=== PATIENT | male | born 1990 ===

== ENCOUNTER 2016-11-02 21:25 | Emergency (ER) | payer OTHER ==
[2016-11-02 21:34] VITALS: BP 129/82; PULSE 81; RESP 20; TEMP 98.3; O2SAT 97
[2016-11-02] MEDS ORDERED: Tetanus/Diphtheria Toxoids 0.5 ml Syringe IM ONE ×2 (21:46→21:51)
[2016-11-02] MEDS ORDERED: Lidocaine 2% Inj (20ml) INFIL ONE (21:47)
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
[2016-11-02] MEDS ORDERED: Lidocaine 2% Inj (20ml) ONE (21:51)
--- NOTE | 2016-11-03 09:35 | RAD ---
PROCEDURE: HISTORY: injury COMPARISON: None TECHNIQUE: Five views FINDINGS: No fracture or dislocation. Each mandibular posterior mole are is diagonally to more horizontally oriented (left greater than right) IMPRESSION: No fracture or dislocation. Mandibular posterior molar orientations - oblique to horizontal
== END 2016-11-02 23:39 | disposition home or self-care (01) ==
LOC: C.ER 21:25
DX: S01.81XA Laceration without foreign body of other part of head, initial encounter (principal); Y04.0XXA Assault by unarmed brawl or fight, initial encounter

== ENCOUNTER 2016-11-09 18:08 | Emergency (ER) | payer OTHER | END 2016-11-09 19:12 | disposition left against medical advice (07) | LOC: C.ER 18:08 | DX: Z48.02 Encounter for removal of sutures (principal); Z02.9 Encounter for administrative examinations, unspecified ==

== ENCOUNTER 2016-11-10 20:55 | Emergency (ER) | payer OTHER ==
[2016-11-10 21:02] VITALS: BP 126/72; PULSE 54; RESP 17; TEMP 97.8; O2SAT 99
--- NOTE | 2016-11-10 21:18 | C.PDOC ---
History Of Present Illness 25 yo male came in for suture removal s/p laceration repair 11/02/16. No discharge, fever or redness. Time Seen by Provider: 11/10/16 21:08 Chief Complaint (Nursing): Wound Check History Per: Patient History/Exam Limitations: no limitations Onset/Duration Of Symptoms: Days Ago Past Medical History Vital Signs: Last Vital Signs Temp 97.8 F 11/10/16 20:59 Pulse 54 L 11/10/16 20:59 Resp 17 11/10/16 20:59 BP 126/72 11/10/16 20:59 Pulse Ox 99 11/10/16 21:18 - Medical History PMH: Asthma Family History: States: Unknown Family Hx - Social History Hx Alcohol Use: Yes Hx Substance Use: No - Immunization History Hx Tetanus Toxoid Vaccination: No Hx Influenza Vaccination: No Hx Pneumococcal Vaccination: No Review Of Systems Constitutional: Negative for: Fever ENT: Negative for: Mouth Pain, Mouth Swelling Skin: Negative for: Rash Neurological: Negative for: Weakness, Numbness Physical Exam - Physical Exam Appears: Well, Non-toxic, No Acute Distress Skin: Warm, Dry, Other ((+) left side of jaw suture ; no erythema , discharge or swelling) Head: Atraumatic, Normacephalic Eye(s): bilateral: Normal Inspection, EOMI Nose: Normal Oral Mucosa: Moist Neck: Normal, Normal ROM, Supple Chest: Symmetrical Respiratory: No Accessory Muscle Use Extremity: Normal ROM Neurological/Psych: Oriented x3, Normal Speech ED Course And Treatment O2 Sat by Pulse Oximetry: 99 Progress Note: Suture removed. Pt tolerated well. Discussed wound care. Disposition - Disposition Referrals: Non [facility] Provider, [Primary Care Provider] - Disposition: HOME/ ROUTINE Disposition Time: 21:18 Condition: STABLE Instructions: Stitches Removal (ED) Forms: [employer] (Danish) - Clinical Impression Clinical Impression: Visit for suture removal
== END 2016-11-10 21:30 | disposition home or self-care (01) ==
LOC: C.ER 20:55 → SUPCPDRO 20:55 → C.ER 21:30
DX: Z48.02 Encounter for removal of sutures (principal)

== ENCOUNTER 2018-08-14 02:21 | Emergency (ER) | payer OTHER ==
[2018-08-14] MEDS ORDERED: Albuterol-Ipratrop 3 mg / 0.5 (3 ml) UD ONE ×2 (02:30→03:06)
[2018-08-14 02:32] VITALS: TEMP 98.1
--- NOTE | 2018-08-14 02:39 | C.PDOC ---
History Of Present Illness patient presents with shortness of breath.received solumedrol and duonebs en route with improvement. No f/c/n/v. Speaking in 4-5 word sentences. Is in contact with cats(to which he's allergic to) as well as smoking hookah Time Seen by Provider: 08/14/18 02:39 Chief Complaint (Nursing): Shortness Of Breath History Per: Patient, EMS History/Exam Limitations: no limitations Onset/Duration Of Symptoms: Hrs Current Symptoms Are (Timing): Still Present Initiating Event: Upper Respiratory Illness, Possible Allergic Reaction Current Respiratory Medications: See Home Med List Severity: Moderate Pain Scale Rating Of: 5 Associated Symptoms: denies: Fever, Chills Reports Recently: Treated By A Physician Recent travel outside of the [place]: No Additional History Per: Family Past Medical History Reviewed: Historical Data, Nursing Documentation, Vital Signs Vital Signs: Last Vital Signs Temp 98.1 F 08/14/18 02:26 Pulse 82 08/14/18 02:26 Resp 23 08/14/18 02:26 BP 144/77 08/14/18 02:26 Pulse Ox 98 08/14/18 02:26 Primary Care Provider: Clinic,Med Surg - Medical History PMH: Asthma Family History: States: No Known Family Hx - Social History Hx Alcohol Use: Yes Hx Substance Use: Yes - Immunization History Hx Tetanus Toxoid Vaccination: No Hx Influenza Vaccination: No Hx Pneumococcal Vaccination: No Review Of Systems Constitutional: Negative for: Fever, Chills Cardiovascular: Negative for: Chest Pain Respiratory: Positive for: Shortness of Breath, Wheezing Gastrointestinal: Negative for: Abdominal Pain Genitourinary: Negative for: Dysuria Musculoskeletal: Negative for: Back Pain Skin: Negative for: Rash Neurological: Negative for: Weakness Psych: Negative for: Anxiety Physical Exam - Physical Exam Appears: In Acute Distress Skin: Warm, Dry Oral Mucosa: Moist Neck: Supple Chest: Symmetrical Cardiovascular: Rhythm Regular Respiratory: Decreased Breath Sounds, No Rales, No Rhonchi, Wheezing Gastrointestinal/Abdominal: Soft, No Tenderness, No Distention Back: No CVA Tenderness Extremity: Bilateral: Atraumatic Neurological/Psych: Oriented x3 Gait: Steady ED Course And Treatment ECG: Interpreted By Me O2 Sat by Pulse Oximetry: 98 Pulse Ox Interpretation: Normal - Radiology CXR: Interpreted by Me, Viewed By Me CXR Interpretation: No: Infiltrates, Fracture, Pnemothorax Reevaluation Time: 03:50 Reassessment Condition: Improved Critical Care Time - Critical Care Note Total Time (in mins): 30 Documented critical care: time excludes all time spent performing seperately billable procedures. Medical Decision Making Medical Decision Making: Upon provider reevaluation patient is feeling better, is medically stable, and requires no further treatment in the ED at this time. Patient will be discharged home with Rx for prednisone, duoneb. Counseling was provided and all questions were answered regarding diagnosis and need for follow up with the referred clinic. There is agreement to discharge plan. Return if symptoms persist or worsen. Disposition Counseled Patient/Family Regarding: Studies Performed, Diagnosis, Need For Followup, Rx Given, Smoking Cessation - Disposition Referrals: [facility] [Outside] [facility] [Outside] Disposition: HOME/ ROUTINE Disposition Time: 02:39 Condition: FAIR Additional Instructions: Please return if symptoms recur Prescriptions: Albuterol/Ipratropium [Duoneb 3 MG/3 Ml-0.5 MG/3 Ml 3 Ml] 1 ea IH QID PRN #50 neb PRN Reason: Wheezing Compressor, For Nebulizer [[place] Compressor-Nebulizer] 1 each MC QID #1 each Prednisone [Deltasone] 20 mg PO DAILY #5 tablet Instructions: Asthma, Adult (DC) Forms: [employer] (Nigerian) - Clinical Impression Clinical Impression: Exacerbation of asthma
[2018-08-14] MEDS: Albuterol-Ipratrop 3 mg / 0.5 (3 ml) UD IH SCH (03:07)
[2018-08-14 04:03] VITALS: BP 121/76; PULSE 72; RESP 16; O2SAT 99
--- NOTE | 2018-08-14 18:22 | RAD ---
Date of service: 08/14/2018 HISTORY: wheezing COMPARISON: No prior. TECHNIQUE: Chest PA and lateral views FINDINGS: LUNGS: No active pulmonary disease. PLEURA: No significant pleural effusion identified. No pneumothorax apparent. CARDIOVASCULAR: No aortic atherosclerotic calcification present. Normal cardiac size. No pulmonary vascular congestion. OSSEOUS STRUCTURES: No significant abnormalities. VISUALIZED UPPER ABDOMEN: Normal. OTHER FINDINGS: None. IMPRESSION: No active disease.
== END 2018-08-14 04:01 | disposition home or self-care (01) ==
LOC: C.ER 02:21
DX: J45.901 Unspecified asthma with (acute) exacerbation (principal)